=== PATIENT | male | born 1955 | race Two or more races ===

== ENCOUNTER 2020-04-01 07:08 | Inpatient (IN) | payer OTHER, SELFPAY ==
[~2020-04-01] VITALS: Ht 182.9 cm; Wt 83.9 kg
[2020-04-01 07:14] VITALS: Ht 182.9 cm; Wt 83.9 kg
--- NOTE | 2020-04-01 07:15 | NUR ---
PT BIB [facility] FROM HOME FOR WORSENING SOB X2 DAYS S/P DIAGNOSED COVID + AND PNEUMONIA PER MEDIC. PER MEDIC UPON ARRIVAL TO PT RESIDENCE PT SPO2 WAS 66% ION ROOM AIR. PT ON NON REBREATHER AT 15L, SPO2 AT 88% AT THIS TIME. PT C/O DRY COUGH AND WORSENING SOB. PT IS AAOX4, RESP SHALLOW AND RAPID, COURSE CRACKLES NOTED TO BILATERAL BASES, PT SPEAKING ON 5-6 WORD SENTENCES, SKIN INTACT PINK WARM AND DRY. PT GOWNED, PLACED IN FULL CM, NSR NOTED, DR LOERA, RT, SAMIA RN, EMT [facility] AND MYSELF AT THE BEDSIDE.
[2020-04-01 07:20] VITALS: BP 153/89
--- NOTE | 2020-04-01 07:20 | NUR ---
EKG IN PROGRESS BY SAMIA MADDOX RN A TTHE BEDSIDE DRAWING FOR LABS, RT AT THE BEDSIDE
--- NOTE | 2020-04-01 07:45 | NUR ---
PT INSTRUCTED OF URINE SAMPLE, URINAL AT THE BEDSIDE FOR PT USE. AWARE.
--- NOTE | 2020-04-01 07:48 | NUR ---
PT PLACED ON HI FLOW 40L 100% PER MD ORDER FOLLWING ABG RESULTS. PT AWAKE, ALERT AND VERBAL. SATURATION 91%. WILL MONITOR PT.
[2020-04-01] MEDS ORDERED: ZESTRIL20 MG PO ×2 (08:02→10:51)
[2020-04-01] MEDS ORDERED: LIPI10 GT (08:02)
[2020-04-01] MEDS ORDERED: CARVEDILOL ER40 MG PO (08:02)
[2020-04-01 08:18] LABS: CALCIUM 8.8 mg/dL (8.5-10.1); CREATININE SERUM 1.4 mg/dL (0.7-1.3); POTASSIUM SERUM 3.8 mmol/L (3.5-5.1)
[2020-04-01 08:22] LABS: BILIRUBIN TOTAL 0.6 mg/dL (0.20-1.00); TOTAL PROTEIN, SERUM 7.7 g/dL (6.4-8.2)
[2020-04-01 08:25] LABS: ALBUMIN 2.8 g/dL (3.4-5.0)
[2020-04-01 08:27] LABS: BASOPHIL % 0.2 % (0-2); PLATELET COUNT 266 x10^3mcL (130-400); RED CELL DISTRIBUTION WIDTH 13.5 % (11.5-14.5)
--- NOTE | 2020-04-01 08:45 | NUR ---
PT RESP APPEAR IMPROVED, RESP ARE EVEN UNLABORED AT THIS TIME. PT SPEAKING IN FULL SENTENCES, NO DISTRESS NOTED. PT DENIES ANY PAIN. PT IN FULL CM, NSR NOTED. WILL CONT TO MONITOR.
[2020-04-01 10:01] LABS: UA SPECIFIC GRAVITY 1.015 (1.005-1.035); microscopic required? YES; urine erythrocyte 1+ (NEGATIVE)
--- NOTE | 2020-04-01 10:17 | NUR ---
PT IN POSITION OF COMFORT LAYING LAYING IN HIGH FOWLERS. PT ASKED FOR SOME WATER FOR "DRY THROAT." OK PER DR LOERA TO GIVE CUP OF WATER. PT GIVEN WATER. PT IS AAOX4, NO DISTRESS NOTED, RESP E/U AT THIS TIME. WILL CONT TO MONITOR.
[2020-04-01] MEDS ORDERED: PLA75 PO (10:51)
[2020-04-01] MEDS ORDERED: CARVEDILOL12.5 M1 PO (10:52)
[2020-04-01] MEDS ORDERED: ATORVASTATIN CA40 M1 PO (10:52)
--- NOTE | 2020-04-01 10:58 | NUR ---
REPORT GIVEN TO REGI RICO ON TELE UNTI WHO WILL ASSUME FURTHER CARE OF THIS PT.
--- NOTE | 2020-04-01 10:58 | NUR ---
NOTIFIED BY SAMIA RICO THAT PT WILL NEED TO BE ASSIGNED TO A DIFFERENT ROOM THAT IS NEGATIVE PRESSURE. AWAITING NEW ROOM ASSIGNMENT AND RN
--- NOTE | 2020-04-01 11:20 | NUR ---
CALLED REX RICO ON TELE FOR ASSIGNED PT, SHE RECEIVED REPORT FROM REGI RICO. PT OK TO BRING UP TO UNIT.
[2020-04-01 11:55] VITALS: BP 157/92
--- NOTE | 2020-04-01 11:55 | NUR ---
RECEIVED PT FROM ED VIA GUERNEY ACCOMPANIED BY RAY AND RN. PT WEARING A MASK UPON ARRIVAL TO UNIT. AAOX4, SPEECH CLEAR. DENIES HAIRSTON/DIZZINESS. APPROPRIATE CONVERSATION NOTED. RES E/U, DENIES SOB. O2 SAT 96% ON 40 L HIGH FLOW, FIO2 100%. LUNG SOUNDS DIMINISHED BILATERALLY AND CRACKLES AT BASES BILATERALLY. TELE MONITOR 2 SHOWING SR, DENIES CP/PRESSURE. PERIPHERAL PULSES PALPABLE W NO EDEMA NOTED. ABDOMEN ROUND AND SOFT W ACTIVE BOWEL SOUNDS. DENIES N/V/D/C. VOID IN URINAL WITHOUT DIFFICULTY. NO COMPLAINT. AMBULATORY AT BASELINE. SKIN DRY, WARM, AND INTACT. SON REPORTS PT HAVING A FEVER A FEW DAYS AGO. CURRENTLY, AFEBRILE. COVID SWAB AND MRSA SWAB DONE AND TAKEN TO LAB. SAFETY PRECAUTIONS IN PLACE. WILL CONTINUE TO MONITOR
[2020-04-01 13:17] VITALS: BP 157/92
[2020-04-01 16:59] VITALS: BP 140/74
--- NOTE | 2020-04-01 18:59 | NUR ---
PT RESTING IN BED USING IPAD WITHOUT APPARENT DISTRESS. NO SIGNIFICANT CHANGES NOTED. O2 SAT 95% ON HIGH FLOW 40 L, FIO2 100%. SOB ON ACTIVITY. OTHERWISE PT STABLE. WILL ENDORSE CARE TO NEXT SHIFT.
--- NOTE | 2020-04-01 20:00 | NUR ---
RECEIVED PT FROM AM NURSE, PT AWAKE AND SITTING IN BED AT THIS TIME. AA/O X 4, ABLE TO MAKE NEEDS KNOWN, CLEAR SPEECH. TELE MONITOR #10, NSR, DENIES CHEST PAIN/CHEST PRESSURE. PULSES PALPABLE, NO EDEMA. LUNG SOUNDS DIMINISHED JAYLENE, CRACKLES TO BLL, RESPIRATIONS E/U ON 40 LPM OF HIGH FLOW OXYGEN, FI02 100%, SP02 AT 92%. DENIES SOB, NO RESPIRATORY DISTRESS AT THIS TIME. ACTIVE BS X 4 QUADS, ABD SOFT AND DISTENDED, NON TENDER. DENIES N/V/D. PT VOIDS USING URINAL. GENERALIZED WEAKNESS, SKIN INTACT, DENIES PAIN. IV TO LAC AND RAC, SL. BOTH IV SITES NO ERYTHEMA, NO INFILTRATION, BOTH FLUSHING WELL. CALL BUTTON WITHIN REACH, WILL CONTINUE TO MONITOR.
--- NOTE | 2020-04-01 20:19 | NUR ---
SPOKE WITH RESIDENT DR. JORDAN AND ASKED TO REVIEW HOME MEDICATIONS AND TO DECIDE TO CONTINUE, ASKED IF SHE WANTED AM LABS, AND ASKED IF SHE RECOMMENDS PO FLUID RESTRICTION FOR PT. DR. JORDAN STATED SHE WILL EVALUATE PT AND F/U WITH ORDERS IF NEEDED. WILL CONTINUE TO MONITOR.
[2020-04-01 22:01] VITALS: BP 143/95
--- NOTE | 2020-04-01 23:00 | NUR ---
DR. CORTES ORDERED 2 UNITS OF CONVALESCENT PLASMA. PT MADE AWARE AND GIVEN CONSENT PAPERWORK TO SIGN. PT DID NOT SIGN CONSENT AND STATED HE WANTS TO CALL HIS SON IN THE MORNING TO DISCUSS PRIOR TO SIGNING.
--- NOTE | 2020-04-02 00:05 | NUR ---
PT IN BED RESTING WITH EYES CLOSED, BUT EASILY AROUSABLE. RESPIRATIONS E/U ON OXYGEN 40 LPM HIGH FLOW, FIO2 100%, SPO2 AT 87-94%. NO RESPIRATORY DISTRESS AT THIS TIME. DENIES PAIN AT THIS TIME. PT CONTINUES ON DROPLET/ CONTACT ISOLATION FOR POSITIVE COVID-19 STATUS. PT AWARE. NO ACUTE DISTRESS AT THIS TIME. CALL BUTTON WITHIN REACH, WILL CONTINUE TO MONITOR.
[2020-04-02 00:30] VITALS: BP 156/86
--- NOTE | 2020-04-02 00:40 | NUR ---
PT COMPLAINED OF COUGH, COUGH NOTED. PRN MUCINEX GIVEN. RT CALLED AND RT STATED THAT THEY COULD ADD A NRB AND THAT PT WAS ALREADY MAXED OUT ON OXYGEN, FIO2 AT 100%. DR. VEGA UPDATED AND MADE AWARE, COUGH SYRUP SUGGESTED. DR. VEGA STATED SHE WOULD ASSESS AND ORDER IF NEEDED. RESPIRATIONS E/U, DENIES SOB. WILL CONTINUE TO MONITOR.
[2020-04-02 06:39] VITALS: BP 151/87
--- NOTE | 2020-04-02 06:50 | NUR ---
PT SLEPT IN INTERVALS THROUGHOUT THE NIGHT, BUT EASILY AROUSABLE. RESPIRATIONS E/U, SPO2 BETWEEN 95-99% THROUGHOUT THE NIGHT ON HIGH FLOW 40 LPM, FIO2 100%. NO RESPIRATORY DISTRESS. PT DENIES SOB. PT DENIES PAIN. NO ACUTE CHANGES OVERNIGHT. DROPLET/ CONTACT ISOLATION PRECAUTIONS CONTINUED FOR POSITIVE COVID-19 STATUS, PT AWARE. CALL BUTTON WITHIN REACH, CARE ENDORSED TO AM NURSE.
--- NOTE | 2020-04-02 07:00 | NUR ---
RECEIVED PT FROM NIGHT RN. PT AAOX4, SPEECH CLEAR. DENIES HAIRSTON/DIZZINESS. APPROPRIATE CONVERSATION NOTED. RES EVEN AND LABORED. O2 SAT 90% ON 40 L HIGH FLOW, FIO2 100%. DRY COUGH NOTED. TELE MONITOR 10 SHOWING SR, DENIES CP/PRESSURE. ABDOMEN ROUND AND SOFT. VOIDS IN URINAL WITHOUT DIFFICULTY. NO GI/ COMPLAINT. PERIPHERAL PULSES PALPABLE W NO EDEMA NOTED. IV SITE TO RAC AND LAC, SL W NO S/S OF INFILTRATION NOTED. SAFETY PRECAUTIONS IN PLACE, WILL CONTINUE TO MONITOR.
[2020-04-02 07:17] LABS: CALCIUM 8.9 mg/dL (8.5-10.1); CARBON DIOXIDE 28.6 mmol/L (21-32); CHLORIDE SERUM 103 mmol/L (98-107); CREATININE SERUM 1.2 mg/dL (0.7-1.3); GFR1 > 60 mL/min; GLUCOSE SERUM 129 mg/dL (74-106); MAGNESIUM 2.2 mg/dL (1.8-2.4); PHOSPHOROUS 2.8 mg/dL (2.5-4.9); POTASSIUM SERUM 3.7 mmol/L (3.5-5.1); SODIUM SERUM 139 mmol/L (136-145)
[2020-04-02 07:22] LABS: BASOPHIL % 0.1 % (0-2); PLATELET COUNT 312 x10^3mcL (130-400); RED CELL DISTRIBUTION WIDTH 13.6 % (11.5-14.5)
--- NOTE | 2020-04-02 08:00 | NUR ---
PT FOUND KNEELING DOWN BY THE FOOT OF THE BED WITH LABORED RESPIRATIONS. PT REPORTS TRYING TO GO TO THE BATHROOM BUT NOT ABLE TO TOLERATE ACTIVITY. ASSISTED PT ON BSC. REMINDED PT TO KEEP OXYGEN ON EVEN WHEN USING THE BSC.
--- NOTE | 2020-04-02 08:04 | NUR ---
CRITICAL RESULT RECEIVED. WBC COUNT 12.9. DR. RICO PAGED TO NOTIFY.
[2020-04-02 09:00] VITALS: BP 140/78
[2020-04-02 10:00] LABS: BILIRUBIN DIRECT 0.17 mg/dL (0.0-0.2); BILIRUBIN TOTAL 0.5 mg/dL (0.20-1.00); TOTAL PROTEIN, SERUM 7.4 g/dL (6.4-8.2)
--- NOTE | 2020-04-02 10:00 | NUR ---
ENCOURAGED PT TO PRONE TOLERATED. PT STATES "HOW CAN I LAY ON BY STOMACH WITH ALL THIS STUFF ON ME?". ENCOURAGED PT TO USE PILLOWS FOR COMFORT IN ORDER TO PRONE.
[2020-04-02 10:05] LABS: ALBUMIN 2.6 g/dL (3.4-5.0)
--- NOTE | 2020-04-02 13:00 | NUR ---
ASSISTED PT TO CHAIR FOR LUNCH. O2 SAT DESAT TO 85% DURING TRANSFER. 15 LPM NRB WAS PLACED WITH 40L HIGH FLOW UNTIL O2 SAT INCREASED TO 93%. PT EATING LUNCH. ON 40 L HIGH FLOW, FIO2 100%.
--- NOTE | 2020-04-02 14:14 | NUR ---
AT 1300 - ATTEMPTED TO OBTAIN CONSENT FOR CONVALESCENT PLASMA FROM. PT REQUESTED TO OBTAIN CONSENT FROM SON. AT 1414 - CALLED SON REGARDING CONVALESCENT PLASMA CONSENT. SON STATED "I WILL CALL MY FATHER FIRST AND CALL YOU BACK"
[2020-04-02 15:00] VITALS: BP 130/69
--- NOTE | 2020-04-02 16:42 | NUR ---
AT 1445 - SON, AUG, CALLED BACK AND AGREED WITH TREATMENT. OBTAINED TELEPHONE CONSENT FOR CONVALESCENT PLASMA. VERIFIED WITH RESOURCE RN, RACIEL.
--- NOTE | 2020-04-02 17:46 | NUR ---
DR PEREZ MADE AWARE REGARDING ORDERS FOR CONVALESCENT PLASMA TRANSFUSION AND TYPE AND SCREEN. STATES HE WILL PLACE ORDERS
--- NOTE | 2020-04-02 18:00 | NUR ---
ASSISTED PT TO SIT ON CHAIR FOR DINNER. ENCOURAGED PT TO EAT. PT HAS POOR APPETITE NOTED. O2 SAT 94% ON 15 LPM NRB AND 40 L HIGH FLOW, FIO2 100%. DRY COUGH NOTED.
[2020-04-02 18:35] VITALS: BP 155/76
--- NOTE | 2020-04-02 20:00 | NUR ---
RECEIVED PT FROM AM NURSE, PT SITTING IN BED AWAKE, AA/O X 4, ABLE TO MAKE NEEDS KNOWN, DENIES HEADACHE/ DIZZINESS. TELE MONITOR #[address], NSR, DENIES CHEST PAIN/ CHEST PRESSURE. PULSES PALPABLE, NO EDEMA. LUNG SOUNDS DIMINISHED BILATERALLY. RESPIRATIONS E/U ON HIGH FLOW 40 LPM, FIO2 100%, NRB 15 LPM. DENIES SOB. ACTIVE BS X 4 QUADS, ABD SOFT AND DISTENDED. DENIES N/V/D. VOIDS USING URINAL. SKIN INTACT. DENIES PAIN. CONTINUES ON DROPLET/ CONTACT ISOLATION FOR POSITIVE COVID-19 STATUS. PT AWARE. ALL CONCERNS MET AT THIS TIME. CALL BUTTON WITHIN REACH, WILL CONTINUE TO MONITOR.
--- NOTE | 2020-04-02 21:50 | NUR ---
PT HAVING COUGH. PRN ROBITUSSIN GIVEN WITH OTHER NIGHTTIME MEDICATIONS. WILL CONTINUE TO MONITOR.
[2020-04-02 22:01] VITALS: BP 149/79
--- NOTE | 2020-04-02 23:45 | NUR ---
FIRST UNIT OF CONVALESCENT PLASMA PICKED UP FROM LAB. PRE VITAL SIGNS FOLLOWS: BP 149/79, HR 71, TEMP 98.7, RR 20, SPO2 92% ON 15 LPM VIA NRB AND 40 LPM HIGH FLOW FIO2 100%. CONVALESCENT TRANSFUSION STARTED AT 2345 RATE 30 ML/ HR. WILL MONITOR FOR REACTIONS, STAYING WITH PATIENT FOR 15 MINUTES.
--- NOTE | 2020-04-03 00:05 | NUR ---
15 MINUTES VITAL SIGNS FOLLOWS: TEMP 97.7, BP 149/75 (99), HR 74 BPM, RR 20, SPO2 90% ON HIGH FLOW WITH NRB 40 LPM FI02 100%. NO ADVERSE SIDE EFFECTS FROM CONVALESCENT PLASMA. RATE INCREASED TO 200 ML/HR. WILL CONTINUE TO MONITOR.
--- NOTE | 2020-04-03 01:10 | NUR ---
FIRST UNIT OF CONVALESCENT PLASMA FINISHED AT 0105. NO ADVERSE SIDE EFFECTS. POST VITAL SIGNS FOLLOWS: BP 146/75, TEMP 97.2, HR 74, RR 20, SPO2 91% ON 15 LPM VIA NRB AND 40 LPM HIGH FLOW FIO2 100%. NO RESPIRATORY DISTRESS AT THIS TIME. WILL CONTINUE TO MONITOR.
--- NOTE | 2020-04-03 03:00 | NUR ---
SECOND UNIT OF CONVALESCENT PLASMA STARTED AT 0235. PRE VITAL SIGNS FOLLOWS: BP 149/75, HR 72, RR 20, TEMP 97.2, SPO2 91%. INFUSION STARTED AT 30 ML/HR. AFTER 15 MINUTES, NO ASE/ NO REACTION. 15 MINUTE VITAL SIGNS FOLLOWS: BP 128/71, HR 68, RR 20, TEMP 97.8, SPO2 92%. RATE INCREASED TO 200 ML/ HR. WILL CONTINUE TO MONITOR.
--- NOTE | 2020-04-03 04:25 | NUR ---
CONVALESCENT PLASMA, SECOND UNIT, FINISHED AT 0400. NO ASE/ NO ADVERSE REACTIONS. PT TOLERATED TRANSFUSIONS WELL. DENIES PAIN. POST VITAL SIGNS FOLLOWS: BP 141/79, HR 79, TEMP 97.7, RR 19, SPO2 91%. CONTINUES ON HIGH FLOW 40 LPM FIO2 100% AND 15 LPM VIA NRB. NO ACUTE DISTRESS NOTED. WILL CONTINUE TO MONITOR.
[2020-04-03 05:38] VITALS: BP 141/79
--- NOTE | 2020-04-03 07:00 | NUR ---
RECEIVED PT FROM NIGHT RN. PT RESTING IN BED WATCHING IPAD. SEMI VARELA'S POSITION. AAOX4, APPROPRIATE CONVERSATION NOTED. RES EVEN AND SLIGHTLY LABORED. SHALLOW BREATHING NOTED. ON 40 L HIGH FLOW, FI02 100% AND 15 L NRB. TELE MONITOR 10 SHOWING SR. NO C/O OF PAIN/DISCOMFORT. ALTHOUGH C/O FATIGUE. BSC IN PLACE. IV SITE TO [facility] SL, CDI. SAFETY PRECUATIONS IN PLACE. COVID POS. WILL CONTINUE TO MONITOR.
--- NOTE | 2020-04-03 07:15 | NUR ---
PT SLEPT IN INTERVALS THROUGHOUT THE NIGHT, RESPIRATIONS E/U ON 40 LPM HIGH FLOW FIO2 100%, 15 LPM O2 VIA NRB. SPO2 DURING NAVIGATION TEACHER RANGING BETWEEN 91- 94%. DENIES PAIN AT THIS TIME. CALL Tania RUTHERFORD WITHIN REACH, CARE ENDORSED TO AM NURSE.
[2020-04-03 07:39] LABS: BASOPHIL % 0.3 % (0-2); PLATELET COUNT 345 x10^3mcL (130-400); RED CELL DISTRIBUTION WIDTH 13.9 % (11.5-14.5)
[2020-04-03 08:08] LABS: ALBUMIN 2.7 g/dL (3.4-5.0); ALKALINE PHOSPHATASE 92 U/L (46-116); ALT/SGPT 121 U/L (16-63); AST/SGOT 136 U/L (15-37); BILIRUBIN TOTAL 0.59 mg/dL (0.20-1.00); CALCIUM 8.6 mg/dL (8.5-10.1); CARBON DIOXIDE 29.6 mmol/L (21-32); CHLORIDE SERUM 103 mmol/L (98-107); CREATININE SERUM 1.2 mg/dL (0.7-1.3); GFR1 > 60 mL/min; GLUCOSE SERUM 110 mg/dL (74-106); MAGNESIUM 2.1 mg/dL (1.8-2.4); PHOSPHOROUS 3.3 mg/dL (2.5-4.9); POTASSIUM SERUM 3.7 mmol/L (3.5-5.1); SODIUM SERUM 140 mmol/L (136-145); TOTAL PROTEIN, SERUM 7.3 g/dL (6.4-8.2)
[2020-04-03 08:11] VITALS: BP 145/86
[2020-04-03 08:51] LABS: C REACTIVE PROTEIN 10.4 mg/dL (<=0.9)
[2020-04-03 09:04] LABS: BILIRUBIN DIRECT 0.17 mg/dL (0.0-0.2); BILIRUBIN TOTAL 0.6 mg/dL (0.20-1.00); TOTAL PROTEIN, SERUM 7.4 g/dL (6.4-8.2)
[2020-04-03 09:05] LABS: ALBUMIN 2.7 g/dL (3.4-5.0)
--- NOTE | 2020-04-03 12:19 | NUR ---
RT AT BEDSIDE WITH RT STUDENT FOR MDI TREATMENT. ENCOURAGED PT TO PRONE. PT REFUSED TO PRONE. PT STATES "I CANT WITH ALL THIS STUFF ON".
[2020-04-03 12:46] VITALS: BP 150/96
--- NOTE | 2020-04-03 13:28 | NUR ---
ASSISTED PT TO PRONE WITH HELP OF PRESS CLEANER. PRESS CLEANER ENCOURAGED PT, IN [place], TO PRONE FOR 12 HOURS OR TOLERATED. PT IS MORE COMPLIANT AND IS CURRENTLY IN PRONED POSITION. O2 SAT 90% ON HIGH FLOW 40 L, FI02 100% AND NRB 15 L
--- NOTE | 2020-04-03 13:30 | NUR ---
CALLED SONJONI, TO PROVIDE UPDATE ON PATIENT'S STATUS. PROVIDED UPDATE THAT PT'S OXYGENATION HAS NOT IMPROVED AND PT IS STILL ON 40 L HIGH FLOW AND 15 L NRB W O2 SAT OF 90-92%. ALSO, TOLD SON TO ENCOURAGE PT TO "LAY ON HIS STOMACH" TO IMPROVE OXYGENATION AND PREVENT INTUBATION. SON SEEMED APPRECIATIVE OF UPDATE.
--- NOTE | 2020-04-03 13:40 | NUR ---
RT AT BEDSIDE TO PLACE PT ON BIPAP ORDERED. PT STILL IN PRONED POSITION.
--- NOTE | 2020-04-03 16:42 | NUR ---
ECHOCARDIOGRAM PENDING-COVID POSITIVE
--- NOTE | 2020-04-03 17:21 | NUR ---
DR GARZON AT BEDSIDE TO EXAMINE AND UPDATE PT ON POC.
[2020-04-03 18:16] VITALS: BP 113/57
--- NOTE | 2020-04-03 18:39 | NUR ---
PT RESTING IN BED IN PRONED POSITION WITHOUT APPARENT DISTRESS. NO SIGNIFICANT CHANGES NOTED. O2 SAT 100% ON BIPAP, SETTING FIO2 100% IPAP 16, IPAP 6. WILL ENDORSE CARE TO NEXT SHIFT
--- NOTE | 2020-04-03 19:30 | NUR ---
RECEIVED PT FROM AM NURSE. PT IS LAYING ON SIDE, NO APPARENT DISTRESS AT THIS TIME. AA/O X 4 ABLE TO MAKE NEEDS KNOWN, CLEAR SPEECH, NO FACIAL DROOP. DENIES HEADACHE/ DIZZINESS. TELE MONITOR #10, NSR, HR 72 BPM. DENIES CHEST PAIN, CHEST PRESSURE. PULSES PALPABLE NO EDEMA. LUNG SOUNDS DIMINISHED JAYLENE, RESPIRATIONS EVEN AND SLIGHTLY LABORED AT TIMES. PT O2 SAT 92-94% AFTER ASSISTING PT TO PRONE POSITION O2 SAT INCREASED TO 96%. ABD SOFT AND SLIGHLY DISTENDED, DENIES N/V/D. PT VOIDS USING URINAL. GENERALIZED WEAKNESS BUT ABLE TO AMBULATE TO CHAIR AND BSC. SKIN INTACT, DENIES PAIN OR ANXIETY AT THIS TIME. IV TO LAC INTACT, DRSG CDI. FLUSHING WELL , NO ERYTHEMA, NO INFILTRATION, SL. DROPLET/ CONTACT ISOLATION PRECAUTIONS IN PLACE FOR POSITIVE COVID 19, PT AND FAMILY AWARE. ALL CONCERNS MET AT THIS TIME. CALL BUTTON WITHIN REACH, WILL CONTINUE TO MONITOR.
--- NOTE | 2020-04-03 20:00 | NUR ---
RECEIVED PHONE CALL FROM PT'S SON JONI, PT SON REQUESTING UPDATE ON HOW HIS DAD IS DOING. UPDATE GIVEN AND PT'S SON SATISFIED HOWEVER PT REQUESTED A CALL BACK AFTER I GO SEE PT AGAIN FOR NIGHT MEDS. REASSURED PT SON I WILL CALL BACK.
[2020-04-03 21:30] VITALS: BP 148/83
--- NOTE | 2020-04-03 22:00 | NUR ---
REQUESTED PROTECTIVE GEL FOR PT'S SKIN AROUND BIPAP. RT PROVIDED. RT ASSESSED PT AND DECREASED BIPAP SETTING FROM 100% DOWN TO 80%. IPAP 12. EPAP 6. PT TOLERATING WELL.
--- NOTE | 2020-04-03 22:36 | NUR ---
I CALLED PT'S SON BACK AND GAVE UPDATE. PTS SON ASKED SEVERAL QUESTIONS, ALL CONCERNS MET TO BEST OF ABILITY. PT'S SON GRATEFUL FOR UPDATE. WILL KEEP FAMILY INFORMED OF ANY CHANGES PER REQUEST.
--- NOTE | 2020-04-03 22:42 | NUR ---
SPO2 AT 98%, PT REMAINS IN PRONE POSITION AT THIS TIME. WILL CONTINUE TO MONITOR.
--- NOTE | 2020-04-04 00:08 | NUR ---
PT LAYING IN BED ON HIS RIGHT SIDE WITH PILLOWS. BIPAP IS ON, RESPIRATIONS E/U WITH O2 SAT 98-99%. SETTINGS REMAIN FIO2 80%, IPAP 12, EPAP 6. DENIES PAIN/ DENIES ANXIETY AT THIS TIME. NO ACUTE DISTRESS NOTED. SIDE RAILS UP X 2. CALL BUTTON WITHIN REACH, WILL CONTINUE TO MONITOR.
[2020-04-04 05:30] VITALS: BP 131/76
--- NOTE | 2020-04-04 06:47 | NUR ---
PT SLEPT IN INTERVALS THROUGHOUT THE NIGHT, BUT EASILY AROUSABLE. RESPIRATIONS EVEN AND SLIGHTLY LABORED AT TIMES. PT DENIES ANXIETY THIS SHIFT, NO ATIVAN GIVEN. PT CONTINUES ON BIPAP FIO2 80%, IPAP 12, EPAP 6 PER RT. O2 SAT IS AT 96%. O2 SAT RANGED FROM 92-98% THROUGHOUT THE NIGHT, PT PRONED/ LAYED ON RIGHT SIDE DURING THE NIGHT, PLEASE ENCOURAGE PT TO CONTINUE PRONE UP TO 12 HOURS PER DAY PER ORDER. DENIES PAIN AT THIS TIME. TELE MONITOR #[address], BATTERY CHANGED. DROPLET ISOLATION PRECAUTIONS IN PLACE FOR POSITIVE COVID 19 STATUS. LOOSE BM THIS MORNING IN BSC. ALL CONCERNS ADDRESSED, PT CONTENT. CALL BUTTON WITHIN REACH, WILL ENDORSE CARE TO AM NURSE.
--- NOTE | 2020-04-04 07:20 | NUR ---
RECEIVED A REPORT FROM AM SHIFT, SEEN PATIENT AWAKE, ALERT, ORIENTED X3, ON BIPAP FIO2 80% PER RT. O2SAT NOTED 91%-95% ON CONT PULSE OX, TELE# 10 NSR HR=75. ON REGULAR DIET. LAST BM THIS AM. USES URINAL AND BSC. S/L TO LAC INTACT AND PATENT. ON CONTACT/DROPLET ISOLATION FOR POSITIVE COVID-19.
--- NOTE | 2020-04-04 07:40 | NUR ---
PER SON'S REQUEST, I CALLED AND UPDATED PT'S SON ON HOW PT DID OVERNIGHT. PT'S SON APPRECIATIVE OF UPDATE. INFORMED SON THAT ONCOMING NURSE WILL BE TAKING OVER CARE AND RT, NURSE, OR DOCTOR'S WILL CALL WITH UPDATES IF NEEDED. REASSURED PT'S SON MUCH POSSIBLE. PT O2 SAT 96% ON BIPAP AT THIS TIME, FI02 80%. CARE ENDORSED TO AM NURSE.
[2020-04-04 08:19] LABS: ALKALINE PHOSPHATASE 87 U/L (46-116); ALT/SGPT 101 U/L (16-63); AST/SGOT 108 U/L (15-37); BILIRUBIN TOTAL 0.8 mg/dL (0.20-1.00); CALCIUM 8.7 mg/dL (8.5-10.1); CARBON DIOXIDE 29.5 mmol/L (21-32); CHLORIDE SERUM 102 mmol/L (98-107); CREATININE SERUM 1.1 mg/dL (0.7-1.3); GFR1 > 60 mL/min; GLUCOSE SERUM 93 mg/dL (74-106); POTASSIUM SERUM 3.9 mmol/L (3.5-5.1); SODIUM SERUM 137 mmol/L (136-145); TOTAL PROTEIN, SERUM 7.2 g/dL (6.4-8.2)
[2020-04-04 08:23] LABS: ALBUMIN 2.5 g/dL (3.4-5.0)
[2020-04-04 08:45] LABS: BASOPHIL % 0.1 % (0-2); PLATELET COUNT 341 x10^3mcL (130-400); RED CELL DISTRIBUTION WIDTH 14.2 % (11.5-14.5)
[2020-04-04 08:57] VITALS: BP 149/90
--- NOTE | 2020-04-04 09:00 | NUR ---
S/L TO LAC LEAKING, NO S/S OF INFECTION, DRSG APPLIED. NEW IV CATHETER#22 INSERTED TO RT WRIST WITH GOOD BLD RETURNED AND FLUSHED WELL. AM SCHEDULED MEDS GIVEN. PATIENT APPEARS ANXIOUS, ATIVAN 0.5MG IVP SLOWLY GIVEN. PLAN OF CARE DISCUSSED. CALL LIGHT PLACED WITHIN EASY REACH. SIDERAILS UP X3. WILL CONTINUE TO MONITOR.
--- NOTE | 2020-04-04 10:28 | NUR ---
PATIENT'S SON CALLED, UPDATED VIA PHONE.
--- NOTE | 2020-04-04 11:10 | NUR ---
DOCTOR RAJPUT AT BEDSIDE FOR AM ROUND. PATIENT MADE AWARE OF CURRENT CONDITION AND PLAN OF CARE. PATIENT'S SON JONI PHONE NUMBER PROVIDED TO DOCTOR RAJPUT TO CALL FOR AN UPDATE.
[2020-04-04 12:30] VITALS: BP 109/60
--- NOTE | 2020-04-04 13:23 | NUR ---
STATED HAD POOR APPETITE, LUNCH TRAY PROVIDED, ENCOURAGED TO EAT. PATIENT SITTING UP IN BED FINISHED SOME SOUP AND APPLE JUICE, DENIES NAUSEA OR PAIN. REMDESEVIR INFUSING TO RT WRIST IV SITE. CALL LIGHT PLACED WITHIN EASY REACH. SIDERAILS UP X2.
--- NOTE | 2020-04-04 14:37 | NUR ---
SEEN RESTING IN BED USING HIS IPAD, NO ANY DISTRESS NOTED, O2SAT 95% ON BIPAP FIO2 80%.
[2020-04-04 18:36] VITALS: BP 125/71
--- NOTE | 2020-04-04 19:37 | NUR ---
NO ANY DISTRESS THROUGHOUT SHIFT. VSS. REMAINS ON BIPAP FIO2 80% WITH O2SAT RANGE BETWEEN 91%-96%. DENIES NAUSEA OR PAIN. BRP. VOIDS FREELY.
[2020-04-04 20:00] VITALS: BP 135/73
--- NOTE | 2020-04-04 20:00 | NUR ---
RECEIVED PATIENT REPORT FROM TIFFANIE RICO. PATIENT IS AAOX3, DENIES HAIRSTON/DIZZINESS. BREATHING EVEN AND UNLABORED ON BIPAP 80% FIO2 WITH 97% O2SAT. PATIENT AMBULATORY WITH BRP. PATIENT ON TELE #10 SR ON MONITOR, DENIES CHEST PAIN/PRESSURE. PALPABLE PULSES. NO DISTRESS NOTED. CALL BUTTON WITHIN REACH. SAFETY PRECAUTIONS IN PLACE. WILL MONITOR.
--- NOTE | 2020-04-05 01:13 | NUR ---
PATIENT RESTING, EASILY AROUSABLE. PATIENT CONTINUE TO HAVE BIPAP ON AND IN PLACE, O2SAT 95%. ALL SAFETY PRECAUTIONS IN PLACE. WILL MONITOR.
--- NOTE | 2020-04-05 05:40 | NUR ---
PATIENT RESTING AT THIS TIME, EASILY AROUSABLE. NO ACUTE DISTRESS NOTED. PATIENT CONTINUE TO BE ON BIPAP THROUGHOUT THE NIGHT WITH 80% FIO2, O2SAT 95%. PATIENT MEDICATED PER EA. ALL NEEDS MET. CALL BUTTON WITHIN REACH. SAFETY PRECAUTIONS IN PLACE. WILL MONITOR.
[2020-04-05 06:02] VITALS: BP 127/70
[2020-04-05 07:09] LABS: PLATELET COUNT 350 x10^3mcL (130-400); RED CELL DISTRIBUTION WIDTH 14.2 % (11.5-14.5)
[2020-04-05 07:19] LABS: BASOPHIL % 0 % (0-2)
--- NOTE | 2020-04-05 07:20 | NUR ---
SEEN AOX4, NOT IN DISTRESS, TELE 10 NSR, PALPABLE PULSES, NO EDEMA, DIMINISHED BLF, NO SOB, BIPAP IN PLACE WITH FIO2 80%, IPAP 12, EPAP6, +BS, VOIDS WITH NO DYSURIA, GENERALIZED WEAKNESS, LIMITED ROM, SKIN DRY AND INTACT, NO PAIN AT THIS TIME, IV INTACT AND PATENT, RW, NO REDNESS OR SWELLING,CALL LIGHT WITHIN REACH, BED AT LOWEST POSITION, SIDE RAILS UP.
--- NOTE | 2020-04-05 07:24 | NUR ---
PATIENT IN NO SIGNS OF DISTRESS. ENDORSED CARE TO OTIS RICO, ALL QUESTIONS ADDRESSED.
[2020-04-05 07:50] LABS: ALKALINE PHOSPHATASE 78 U/L (46-116); ALT/SGPT 92 U/L (16-63); AST/SGOT 87 U/L (15-37); BILIRUBIN TOTAL 0.8 mg/dL (0.20-1.00); CALCIUM 8.6 mg/dL (8.5-10.1); CARBON DIOXIDE 31.8 mmol/L (21-32); CHLORIDE SERUM 103 mmol/L (98-107); GFR1 > 60 mL/min; GLUCOSE SERUM 106 mg/dL (74-106); POTASSIUM SERUM 3.9 mmol/L (3.5-5.1); SODIUM SERUM 138 mmol/L (136-145); TOTAL PROTEIN, SERUM 6.8 g/dL (6.4-8.2)
[2020-04-05 07:53] LABS: ALBUMIN 2.3 g/dL (3.4-5.0)
[2020-04-05 08:51] VITALS: BP 117/64
--- NOTE | 2020-04-05 08:52 | NUR ---
MEDICATIONS GIVEN PER EMAR. COREG AND LISINOPRIL ON HOLD.
--- NOTE | 2020-04-05 09:41 | NUR ---
SPOKE WITH TYLER PATEL, PER TYLER, SHE WILL SWITCH OUT THE MASK SO PATIENT WON'T FEEL AIR LEAKING OUT TO DRY HIS EYES.
--- NOTE | 2020-04-05 09:44 | NUR ---
SPOKE WITH RT TYLER, PER TYLER, HER PLAN IS TO WEAN PATIENT TO HI FLOW LATER THIS AFTERNOON. PATIENT HAS NO SUBJECTIVE COMPLAINT, PER PATIENT HE FEELS BETTER, O2 SAT 95%.
--- NOTE | 2020-04-05 12:41 | NUR ---
SEEN AOX4, NOT IN DISTRESS. PATIENT SERVED WITH LUNCH TRAY. TRIED TO CHANGE O2 FROM BIPAP TO NC SO HE CAN EAT LUNCH, O2 SAT WENT DOWN FROM 97% TO 90%. PER PATIENT, HE WON'T EAT BECAUSE HE IS NOT HUNGRY FOR NOW. HE WILL JUST KEEP HIS MASK ON .CHANGED BACK TO BIPAP. O2 SAT 99%.
--- NOTE | 2020-04-05 14:02 | NUR ---
SPOKE RT TYLER, PER TYLER, PATIENT IS NOW ON HIGH FLOW 35LPM .O2 SAT 95%. NO SOB. NO SUBJECTIVE COMPLAINTS.
--- NOTE | 2020-04-05 14:36 | NUR ---
REMDESIVIR IV GIVEN PER EMAR.
[2020-04-05 18:03] VITALS: BP 130/78
--- NOTE | 2020-04-05 19:33 | NUR ---
RECEIVED REPORT FROM DAY SHIFT NURSE. CALLED IN, PT DENIES ANY PAIN OR SOB AT THIS TIME. SAO2 READING 91% ON HIGH FLOW 35L FIO2 80%. STATES HE DOES NOT NEED ANYTHING AT THIS TIME. WILL CONTINUE TO MONITOR
[2020-04-05 20:32] VITALS: BP 137/77
--- NOTE | 2020-04-05 21:30 | NUR ---
ROUTINE MEDICATIONS ADMINISTERED AND TOLERATED WELL. NO ACUTE DISTRESS NOTED. BREATHING IS EVEN AND UNLABORED ON HIGH FLOW 35L FIOS 80%. DENIES SOB. SAO2 READING 94%. NO RESP DISTRESS NOTED. DENIES PAIN AT THIS TIME. IV TO RW PATENT AND INTACT. NO ERYTHEMA NOTED. BED IN LOWEST POSITION. CALL LIGHT WITHIN REACH. WILL CONTINUE TO MONITOR.
--- NOTE | 2020-04-05 23:58 | NUR ---
PT RESTING COMFORTABLY. SAO2 READING 99% ON 35L HIGH FLOW FIO2 80%. NO RESP DISTRESS NOTED. WILL CONTINUE TO MONITOR.
--- NOTE | 2020-04-06 01:49 | NUR ---
NO ACUTE DISTRESS NOTED. SAO2 READING 94%. WILL CONTINUE TO MONITOR.
--- NOTE | 2020-04-06 02:55 | NUR ---
SAO2 READING 75%. CALLED IN, PT ACCIDENTALLY REMOVED OXYGEN. SAO2 NOW READING 98%. DENIES SOB. WILL CONTINUE TO MONITOR.
[2020-04-06 05:43] VITALS: BP 106/68
--- NOTE | 2020-04-06 06:30 | NUR ---
PT RESTED COMFORTABLY THROUGHOUT THE NIGHT WITH NO ACUTE EVENTS OCCURRING DURING THE SHIFT. COMFORT AND SAFETY MEASURES MAINTAINED. ALL NEEDS ASSESSED AND ATTENDED TO. WILL CONTINUE TO MONITOR AND ENDORSE CARE TO DAY SHIFT NURSE.
[2020-04-06 06:47] LABS: PLATELET COUNT 394 x10^3mcL (130-400); RED CELL DISTRIBUTION WIDTH 14.3 % (11.5-14.5)
[2020-04-06 06:53] LABS: BASOPHIL % 0 % (0-2)
[2020-04-06 06:56] LABS: ALKALINE PHOSPHATASE 78 U/L (46-116); ALT/SGPT 95 U/L (16-63); AST/SGOT 79 U/L (15-37); BILIRUBIN TOTAL 0.6 mg/dL (0.20-1.00); CARBON DIOXIDE 35.2 mmol/L (21-32); CHLORIDE SERUM 104 mmol/L (98-107); GFR1 > 60 mL/min; GLUCOSE SERUM 117 mg/dL (74-106); POTASSIUM SERUM 4.6 mmol/L (3.5-5.1); SODIUM SERUM 139 mmol/L (136-145); TOTAL PROTEIN, SERUM 6.8 g/dL (6.4-8.2)
[2020-04-06 06:58] LABS: ALBUMIN 2.4 g/dL (3.4-5.0)
--- NOTE | 2020-04-06 07:00 | NUR ---
RECEIVED PT RESTING IN BED WITH NO C/O PAIN OR DISTRESS. A/O X4 WITH NO HAIRSTON OR DIZZINESS. TELE #10 CONNECTED TO PT AND HE DENIES ANY CP OR PRESSURE. PT FOUND ON HF 35LPM AT 80%N NO SOB NOTED. PT ON 1200/DAY FLUID RESTRICTION. RIGHT WRIST IV CDI AND PATENT. PT COVID POSITIVE.SAFETY PRECAUTIONS IN PLACE, CALL LIGHT WITHIN REACH, WILL MONITOR.
[2020-04-06 08:11] LABS: C REACTIVE PROTEIN 8.4 mg/dL (<=0.9); MAGNESIUM 2.4 mg/dL (1.8-2.4)
--- NOTE | 2020-04-06 09:15 | NUR ---
TITRATED HFNC TO 30L FIO2:75%. PT TOLERATING WELL. NO ACUTE RESP DISTRESS NOTED. WILL CONT.TO MONITOR
[2020-04-06 09:40] VITALS: BP 111/65
--- NOTE | 2020-04-06 12:00 | NUR ---
PT STABLE WITH NO DISTRESS OR PAIN NOTED. WILL CONTINUE TO MONITOR.
[2020-04-06 13:17] VITALS: BP 122/63
--- NOTE | 2020-04-06 16:25 | NUR ---
TITRATED HFNC TO 30L FIO2:65%. PT TOLERATING WELL. NO RESP DISTRESS NOTED. WILL CONT.TO MONITOR
[2020-04-06 18:34] VITALS: BP 106/62
--- NOTE | 2020-04-06 18:40 | NUR ---
PT RESTING IN BED WITH NO C/O PAIN OR DISTRESS. VS WNL. A/O X4 WITH NO HAIRSTON OR DIZZINESS. TELE #10 CONNECTED TO PT AND HE DENIES ANY CP OR PRESSURE. PT ON HF 30 LPM AT 80%, NO SOB NOTED. PT ON 1200/DAY FLUID RESTRICTION. RIGHT WRIST IV CDI AND PATENT. PT COVID POSITIVE. SAFETY PRECAUTIONS IN PLACE, CALL LIGHT WITHIN REACH, WILL ENDORSE CARE OVER TO NIGHT NURSE.
--- NOTE | 2020-04-06 19:50 | NUR ---
RECEIVED PT IN BED, AWAKE, RESTING COMFORTABLY. PT IS A/O X 3, ABLE TO MAKE NEEDS KNOWN, ABLE TO FOLLOW COMMANDS, NO C/O H/A OR DIZZINESS. RESP IS EVEN AND UNLABORED, LUNGS SOUNDS DIMINISHED BILATERALLY, PT ON HI FLOW 30L, FIO2 65%, SPO2 97%, OCCASIONAL DRY COUGH NOTED. PT ON TELE # 10 SB, HR 55, NO C/ CHEST PAIN OR DIZZINESS. RADIAL AND PEDAL PULSES PRESENT, NO EDEMA NOTED. ABDOMEN SOFT AND FLAT, ACTIVE BS PRESENT X4, NO C/O N/V/D. SKIN IS WARM AND DRY, IV SITE TO THE RIGHT WRIST, INTACT, SALINE LOCKED. GENERALIZED WEAKNESS NOTED, PT AMBULATORY AT BASELINE. BED TO LOWEST POSITION, CALL LIGHT WITHIN REACH. WILL CONT TO MONITOR FOR CHANGES IN CONDITION.
[2020-04-06 21:07] VITALS: BP 133/77
--- NOTE | 2020-04-07 00:30 | NUR ---
PT IN BED RESTING COMFORTABLY WITH EYES CLOSED. NO C/O PAIN AT THIS TIME, NO ACUTE DISTRESS NOTED. RESP IS EVEN AND UNLABORED, ON BIPAP FIO2 65% SPO2 100%. NEED ATTENDED AND MET, FREQUENT VISUAL MONITORING RENDERED. BED TO LOWEST POSITION. CALL LIGHT WITHIN REACH. WILL CONT TO MONITOR FOR CHANGES IN CONDITION.
[2020-04-07 06:21] VITALS: BP 113/61
--- NOTE | 2020-04-07 06:36 | NUR ---
PT IN BED, RESTING COMFORTABLY WITH EYES CLOSED. NO ACUTE DISTRESS NOTED, RESP IS EVEN AND UNLABORED, NEEDS ATTENDED AND MET, FREQUENT VISUAL MONITORING RENDERED. PT ON HI FLOW WITH FI02 60% 30L, 02 SAT 99%. CALL LIGHT WITHIN REACH, BED TO LOWEST POSITION, WILL CONT TO MONITOR PT FOR CHANGES IN CONDITION AND ENDORSE TO NEXT SHUFT NURSE.
--- NOTE | 2020-04-07 07:00 | NUR ---
RECEIVED PT RESTING IN BED WITH NO C/O PAIN OR DISTRESS. A/O X4 WITH NO HAIRSTON OR DIZZINESS. TELE #10 CONNECTED TO PT AND HE DENIES ANY CP OR PRESSURE. PT FOUND ON HF 30 LPM AT 60%, NO SOB NOTED. PT ON 1200/DAY FLUID RESTRICTION. RIGHT WRIST IV CDI AND PATENT. PT COVID POSITIVE. SAFETY PRECAUTIONS IN PLACE, CALL LIGHT WITHIN REACH, WILL MONITOR.
[2020-04-07 07:59] LABS: BASOPHIL % 0.2 % (0-2); RED CELL DISTRIBUTION WIDTH 14.2 % (11.5-14.5)
[2020-04-07 08:03] LABS: PLATELET COUNT 419 x10^3mcL (130-400)
[2020-04-07 08:23] LABS: ALKALINE PHOSPHATASE 74 U/L (46-116); ALT/SGPT 94 U/L (16-63); AST/SGOT 66 U/L (15-37); BILIRUBIN TOTAL 0.6 mg/dL (0.20-1.00); C REACTIVE PROTEIN 4.6 mg/dL (<=0.9); CALCIUM 8.7 mg/dL (8.5-10.1); CHLORIDE SERUM 104 mmol/L (98-107); GFR1 > 60 mL/min; GLUCOSE SERUM 105 mg/dL (74-106); SODIUM SERUM 137 mmol/L (136-145); TOTAL PROTEIN, SERUM 6.9 g/dL (6.4-8.2)
[2020-04-07 08:36] LABS: ALBUMIN 2.4 g/dL (3.4-5.0)
[2020-04-07 09:16] VITALS: BP 106/63
--- NOTE | 2020-04-07 10:00 | NUR ---
PT STABLE WITH NO C/O ANY PAIN OR DISTRESS. ALL SAFETY PRECAUTIONS IN PLACE, CALL LIGHT WITHIN REACH, WILL CONTINUE TO MONITOR.
[2020-04-07 13:23] VITALS: BP 101/58
--- NOTE | 2020-04-07 16:16 | NUR ---
Initial Nutrition Assessment: 230A SELWYN HDZ 64M MR Dx: covid+, PNA, hypoxia PMHx: HTN, CVA PSHx: none Labs: (04/07) BUN 35H, AST 66H, ALT 94H, CRP 4.6H, Alb 2.4L (04/01) Ferritin 2202 H, Lactate Dehyd 703H Meds: Colace, Coreg, Decadron, Lipitor, Lovenox, Mucinex, Norvasc, Pepcid, Plavix, Ventolin, Zestril PRN Meds: Ativan, Hydralazine HCL, Tylenol, Zofran Diet: regular PO intake since admission: 15-40%, PO average of 24% Ht:182.9cm/6ft Wt: 83.91kg/185# BMI: 25.1 Bed scale: n/a IBW:80.9kg/178# %IBW: 103% UBW: n/a Age: 64 Food Allergies: unknown Skin condition: CDI Vern:19 Edema: none noted Last BM: 04/05 Per H&P (04/01): Pt is 64 w/ PMH of HTN and CVA, dx as COVID +2 days ago, who presents today w/ SOB and low O2 Saturday. The pt states that he measures his saturation at home and when it got too low he came to ED. When EMS arrived, they stated pt was 65% on room air. They places him on a nonrebreather had O2 increased to 80%. Pt is coughing and tachypneic states he is having trouble breathing. He will be admitted for further care. Dx at admission: PNA r/o covid, Hx of HTN(stable), DVT prophylaxis RD Note (04/07): Since pt was insolation, assessment was completed with pt's primary nurse. Per RN, pt is eating fine and has no GI distress. Pt is chewing and swallowing fine as well. Per RN, pt's appetite is fine but nutrition flowsheet shows that pt's average PO intake is 24%. With an average PO intake of 24%, pt is receiving 647 kcal and 29 g protein. This meets 26% of his estimated energy needs and 30% of protein needs. Problem with: N/V/D/C: per RN, none Problems with: Chewing: Swallowing: per RN, none Current appetite: per RN, fair Recent wt change: n/a %wt change: n/a Vitamin/Supplement use: n/a Special diet at home: n/a Physical activity: n/a Nutrition education given (specify specific nutrition education and handout given): n/a Food-drug interactions? Education given? n/a Estimated Nutritional Needs Based on ideal body weight (81kg) Energy: 2430 - 2835 kcal/day (30-35 kcal/kg for viral infection) Protein: 97 - 121 g/day (1.2-1.5 g/kg for viral infection) Fluid: 2430 - 2835 mL/day (1 mL/kcal) Nutrition Diagnosis: 1. Increased protein and energy needs r/t viral infection a/e/b pt is covid positive. 2. Inadequate energy and protein intake r/t poor PO intake a/e/b pt average PO intake of 24% since admission. Intervention 1. Recommend continue regular diet as tolerated. 2. Recommend Ensure Enlive BID for additional 700 kcal and 40 g protein. Monitor/Evaluate Goal: PO intake at least 75% of estimated needs Monitor: PO intake, Labs, GI function F/U in 2-3 days as high risk (04/09-)
--- NOTE | 2020-04-07 16:16 | NUR ---
1. Recommend continue regular diet as tolerated. 2. Recommend Ensure Enlive BID for additional 700 kcal and 40 g protein.
--- NOTE | 2020-04-07 17:10 | NUR ---
PT RESTING IN BED WITH NO C/O PAIN OR DISTRESS. A/O X4 WITH NO HAIRSTON OR DIZZINESS. TELE #10 CONNECTED TO PT AND HE DENIES ANY CP OR PRESSURE. PT FOUND ON HF 30 LPM AT 55%, NO SOB NOTED. PT ON 1200/DAY FLUID RESTRICTION. RIGHT WRIST IV CDI AND PATENT. PT COVID POSITIVE. SAFETY PRECAUTIONS IN PLACE, CALL LIGHT WITHIN REACH, WILL ENDORSE CARE OVER TO NIGHT NURSE.
[2020-04-07 18:33] VITALS: BP 112/66
--- NOTE | 2020-04-07 20:00 | NUR ---
PT RECEIVED IN BED, AWAKE, A/O X 3, ABLE TO FOLLOW COMMNADS, ABLE TO MAKE NEEDS KNOWN, SPEECH IS CLR, NO C/O HAIRSTON OR DIZZINESS. PT ON HI-FLOW 30L FI02 55% SP02 93%, OCCASIONAL DRY COUGH NOTED. PT ON TELE #10, NO C/O CP. ABD IS SOFT AND NON DISTENDED, ACTIVE BS PRESENT X4, NO C/O N/V/D. PT VOIDS FREELY, NO C/O PAIN OR DISCOMFORT. PT IS AMBULATORY, ABLE TO REPOSITION SELF IN BED AND TRANSFER FROM BED TO CHAIR INDEPENDENTLY. IV SITE RIGHT WRIST, CDI, SALINE LOCKED. BED TO LOWEST POSITION, CALL LIGHT WITHIN REACH, WILL CONT TO MONITOR FOR CHANGES IN CONDITION.
[2020-04-07 21:37] VITALS: BP 93/53
--- NOTE | 2020-04-08 00:14 | NUR ---
PT IN BED RESTING COMFORTABLY WITH EYES CLOSED, NO ACUTE DISTRESS NOTED. NO C/O PAIN AT THIS TIME. PT CONT ON HF 30L FI02 55%, SPO2 95%. BED TO LOWEST POSITION, CALL LIGHT WITHIN REACH. WILL CONT TO MONIOTR FOR CHANGES IN CONDTION.
[2020-04-08 05:32] VITALS: BP 106/65
--- NOTE | 2020-04-08 05:36 | NUR ---
PT IN BED AWAKE, RESTING CONFORTABLY. NO C/O PAIN, NO ACUTE DISTRESS NOTED. RESP IS EVEN AND UNLABORED, CONT ON HF 30L FI02 55% WITH SPO2 97%. FREQUENT VISUAL MONITORING RENDERED. NEEDS ATTENDED AND MET. CALL LIGHT WITHIN REACH WILL CONT TO MONITOR FOR CHANGES IN CONDITION.
--- NOTE | 2020-04-08 07:11 | NUR ---
RECEIVED PT REPORT FROM CARDIOVASCULAR INVASIVE SPECIALIST NURSE. WILL ASSUME PT CARE.
[2020-04-08 07:35] LABS: BASOPHIL % 0.1 % (0-2); PLATELET COUNT 399 x10^3mcL (130-400)
[2020-04-08 07:38] LABS: ALKALINE PHOSPHATASE 93 U/L (46-116); ALT/SGPT 96 U/L (16-63); AST/SGOT 61 U/L (15-37); BILIRUBIN TOTAL 0.73 mg/dL (0.20-1.00); C REACTIVE PROTEIN 3.4 mg/dL (<=0.9); CALCIUM 8.6 mg/dL (8.5-10.1); CARBON DIOXIDE 29.2 mmol/L (21-32); CHLORIDE SERUM 102 mmol/L (98-107); CREATININE SERUM 1.2 mg/dL (0.7-1.3); GFR1 > 60 mL/min; GLUCOSE SERUM 108 mg/dL (74-106); SODIUM SERUM 136 mmol/L (136-145); TOTAL PROTEIN, SERUM 6.8 g/dL (6.4-8.2)
[2020-04-08 07:40] LABS: ALBUMIN 2.4 g/dL (3.4-5.0)
[2020-04-08 08:53] VITALS: BP 105/67
--- NOTE | 2020-04-08 08:55 | NUR ---
PT SEEN AT BEDSIDE. PT AOX4, RESP E/U ON HIGH FLOW, O2: 30 LPM, FIO2: 55, SPO2: 94%. DENIES SOB AT THIS TIME, NO ACUTE DISTRESS NOTED. ON TELE 8 SHOWING NSR, HR: 63. IV SALINE LOCK TO LFA W/ NO ERYTHEMA/EDEMA. BED IN LOWEST POSITION AND CALL LIGHT WITHIN REACH. WILL CONTINUE TO MONITOR.
[2020-04-08 12:43] VITALS: BP 102/58
--- NOTE | 2020-04-08 12:43 | NUR ---
PT RESTING IN BED, AXO4, RESP E/U ON HIGH FLOW. RT AT BEDSIDE, TITRATED O2 TO 25 LPM AT THIS TIME. FIO2: 50, SPO2: 97%. PT DENIES SOB. WILL CONTINUE TO MONITOR.
--- NOTE | 2020-04-08 13:30 | NUR ---
DIETITIAN CO-SIGN The Nutrition Notes documented by the Water Quality Assistant have been reviewed. Reviewed/Co-Signed by: Joshua Lawson Documentation Done by: Fani Boyle
[2020-04-08 17:37] VITALS: BP 112/68
--- NOTE | 2020-04-08 17:56 | NUR ---
PT RESTING IN BED, AXO4, RESP E/U ON HIGH FLOW AT 25 LPM, FIO2: 50, SPO2: 96%. DENIES SOB AT THIS TIME, NO ACUTE DISTRESS NOTED. IV TO R WRIST PATENT/INTACT, WNL. BED IN LOWEST POSITION AND CALL LIGHT WITHIN REACH. WILL CONTINUE TO MONITOR.
--- NOTE | 2020-04-08 20:00 | NUR ---
PATIENT RECEIVED AWAKE, ALERT, ORIENTED X4 IN BED. RESPIRATION EVEN AND UNLABORED, ON HI FLOW AT 25 LPM, ON DROPLET PRECAUTION. SALINE LOCK TO R WRIST PATENT AND INTACT. DENIES GI DISCOMFORT, LBM 04/08. VOIDING FREELY WITHOUT DIFFICULTY, USES URINAL/BSC. GENERALIZED WEAKNESS. ON TELE #10. DENIES DISCOMFORT/PAIN AT THIS TIME. PLACED CALL LIGHT WITHIN REACH. WILL CONTINUE TO MONITOR.
[2020-04-08 20:15] VITALS: BP 112/73
[2020-04-09 05:20] VITALS: BP 107/65
--- NOTE | 2020-04-09 06:09 | NUR ---
PATIENT RESTING IN BED. RESPIRATION EVEN AND UNLABORED, ON HI FLOW AT 25 LPM, ON DROPLET PRECAUTION. IV SITE PATENT AND INTACT. DENIES DISCOMFORT/PAIN. ASSISTED WITH NEEDS. SAFETY OBSERVED. PLACED BED IN THE LOWEST POSITION. PLACED CALL LIGHT WITHIN REACH AT ALL TIMES.
--- NOTE | 2020-04-09 07:05 | NUR ---
RECEIVED PT REPORT FROM MANAGER AGRICULTURAL NURSE. WILL ASSUME PT CARE.
[2020-04-09 07:45] LABS: C REACTIVE PROTEIN 5.6 mg/dL (<=0.9); CALCIUM 8.6 mg/dL (8.5-10.1); CARBON DIOXIDE 30.3 mmol/L (21-32); CHLORIDE SERUM 105 mmol/L (98-107); CREATININE SERUM 0.8 mg/dL (0.7-1.3); GFR1 > 60 mL/min; GLUCOSE SERUM 149 mg/dL (74-106); POTASSIUM SERUM 3.5 mmol/L (3.5-5.1); SODIUM SERUM 141 mmol/L (136-145)
--- NOTE | 2020-04-09 08:55 | NUR ---
PT SEEN AT BEDSIDE RESTING COMFORTABLY, AOX4, RESO E/U ON HIGH FLOW AT 25 LPM, FIO2: 40, SPO2: 96%. DENIES SOB AT THIS TIME, NO ACUTE DISTRESS NOTED. ON TELE 10 SHOWING NSR, HR: 67. IV SALINE LOCK TO R WRIST W/ NO ERYTHEMA/EDEMA. BED IN LOWEST POSITION AND CALL LIGHT WITHIN REACH. WILL CONTINUE TO MONITOR.
[2020-04-09 08:58] VITALS: BP 116/78
[2020-04-09 09:22] LABS: RED CELL DISTRIBUTION WIDTH 14.3 % (11.5-14.5)
[2020-04-09 09:28] LABS: BASOPHIL % 0.1 % (0-2)
[2020-04-09 09:54] LABS: PLATELET COUNT 437 x10^3mcL (130-400)
[2020-04-09 12:26] VITALS: BP 109/65
[2020-04-09 16:06] VITALS: BP 103/66
--- NOTE | 2020-04-09 18:08 | NUR ---
PT IN BED AHVING DINNER, AOX4, RESP E/U ON HIGH FLOW AT 18 LPM, FIO2: 40. SPO2: 97%. DENIES SOB AT THIS TIME, NO ACUTE DISTRESS NOTED. IV TO R WRIST PATENT/INTACT, WNL. BED IN LOWEST POSITION AND CALL LIGHT WITHIN REACH. WILL ENDORSE TO ONCOMING NURSE.
--- NOTE | 2020-04-09 19:05 | NUR ---
RECEIVED PATIENT FROM PREVIOUS SHIFT NURSE. PATIENT IN NO ACUTE DISTRESS. AWAKE, ALERT AND ORIENTED X4. PATIENT DENIES ANY PAIN AT THIS TIME. TELE #10 SR. HR 60. PATIENT DENIES ANY CHEST PAIN OR CHEST PRESSURE. DENIES ANY HAIRSTON OR DIZZINESS AT THIS TIME. HI FLOW IN PLACE AT 18 LPM, FIO2 40%. DENIES ANY SOB AT THIS TIME. PATIENT ENCOURAGED TO LAY PRONE WHEN HE IS READY TO GO TO SLEEP. PATIENT VERBALIZES UNDERSTANDING. COMMODE AT BEDSIDE AND HAS TWO URINALS. RW IV WNL. BED IN LOWEST POSITION. CALL LIGHT WITHIN REACH. SIDE RAILS UP X2.
[2020-04-09 20:35] VITALS: BP 121/76
--- NOTE | 2020-04-09 21:45 | NUR ---
PATIENT HAD A 8SEC RUN OF [facility]. DR WHITE NOTIFIED. PATIENT ASYMPTOMATIC. DENIES NAY CHEST PAIN/CHEST PRESSURE. IS NOT LIGHTHEADED OR DIZZY. WILL CONTINUE TO MONITOR. NO FURTHER ORDERS AT THIS TIME.
[2020-04-09 22:23] VITALS: BP 108/52
--- NOTE | 2020-04-10 04:51 | NUR ---
PT TITRATED DOWN TO 10L VIA OXYMIZER AT 20:45 LAST NIGHT (04/09/20). PT TOLERATED WELL, WITHOUT INCIDENT. WILL CONT TO MONITOR, AND TITRATE TOLERATED. RN MADE AWARE.
--- NOTE | 2020-04-10 05:23 | NUR ---
PT TITRATED DOWN TO 8L VIA OXYMIZER WITHOUT INCIDENT, WILL CONT. TO MONITOR. CONTINUE TO TITRATE TOLERATED.
[2020-04-10 05:58] VITALS: BP 114/61
--- NOTE | 2020-04-10 06:54 | NUR ---
PATIENT IN NO ACUTE DISTRESS. NO MORE EVENTS OF VTACH. PATIENT SLEEPING COMFORTABLY. PATIENT TITRTATED DOWN BY RESP TP 8L OXYMIZER. [id number]%. EVEN AND UNLABORED BREATHING NOTED. NO C/O SOB. TOLERATED MEDCIATIONS. BED IN LOWEST POSITION. CALL LIGHT WITHIN REACH. ISOLATION PRECAUTIONS IN PLACE. SIDE RAILS UP X2.
--- NOTE | 2020-04-10 07:05 | NUR ---
RECEIVED PT REPORT FROM JANITORIAL ACCOUNT MANAGER NURSE. WILL ASSUME PT CARE.
[2020-04-10 08:24] LABS: CALCIUM 8.8 mg/dL (8.5-10.1); CARBON DIOXIDE 26.2 mmol/L (21-32); CHLORIDE SERUM 100 mmol/L (98-107); GFR1 > 60 mL/min; GLUCOSE SERUM 100 mg/dL (74-106); POTASSIUM SERUM 4.4 mmol/L (3.5-5.1); SODIUM SERUM 135 mmol/L (136-145)
--- NOTE | 2020-04-10 08:45 | NUR ---
PT SEEN AT BEDSIDE, RESTING COMFORTABLY, AOX4, RESP E/U ON 6L OXYMIZER. DENIES SOB AT THIS TIME, SPO2: 97%, NO ACUTE DISTRESS NOTED. ON TELE 10 SHOWING NSR, HR: 67. IV SALINE LOCK W/ NO ERYTHEMA/ EDEMA. BED IN LOWEST POSITION AND CALL LIGHT WITHIN REACH. WILL CONTINUE TO MONITOR.
[2020-04-10 08:56] VITALS: BP 104/67
[2020-04-10 09:16] LABS: BASOPHIL % 0 % (0-2); PLATELET COUNT 396 x10^3mcL (130-400); RED CELL DISTRIBUTION WIDTH 13.9 % (11.5-14.5)
[2020-04-10 12:49] VITALS: BP 107/59
[2020-04-10 17:46] VITALS: BP 109/67
--- NOTE | 2020-04-10 17:55 | NUR ---
PT IN BED HAVING DINNER, AOX3, RESP E/U ON 5L OXYMIZER, SPO2: 97%. DENIES SOB AT THIS TIME, NO ACUTE DISTRESS NOTED. IV TO R WRIST PATENT/INTACT, WNL. BED IN LOWEST POSITION AND CALL LIGHT WITHIN REACH. WILL CONTINUE TO MONITOR.
--- NOTE | 2020-04-10 19:00 | NUR ---
CARE ASSUMED FROM OUTGOING RN. PT RESTING COMFORTABLY IN BED. NO ACUTE DISTRESS NOTED. EVEN AND UNLABORED RESPIRATIONS ON 5L OXYMIZER, SATTING 95%, NO C/O SOB. ON TELE #10 READING SR 61. IVL INTACT. NO C/O PAIN AT THIS TIME. CONTACT AND DROPLET ISOLATION IN PLACE. BED IN LOWEST POSITION. SIDE RAILS UPX2. CALL LIGHT WITHIN REACH. WILL CONTINUE TO MONITOR.
[2020-04-10 21:16] VITALS: BP 111/73
--- NOTE | 2020-04-10 21:21 | NUR ---
RT AT BEDSIDE, TITRATED TO 3L OXYMIZER, PT TOLERATING WELL. WILL CONTINUE TO MONITOR.
--- NOTE | 2020-04-10 23:02 | NUR ---
DISREGARD POC GLUCOSE: 327, WRONG PT SCANNED. JOB LITHOGRAPHER MADE AWARE
--- NOTE | 2020-04-11 00:15 | NUR ---
PT RESTING IN SIDE-LYING POSITION WITH EYES CLOSED. NO ACUTE DISTRESS NOTED. EVEN AND UNLABORED RESPIRATIONS ON 3L OXYMIZER, SATTING 98%, ON TELE READING SB [address] WILL CONTINUE TO MONITOR.
[2020-04-11 06:33] VITALS: BP 123/77
--- NOTE | 2020-04-11 06:50 | NUR ---
PT RESTED COMFORTABLE IN INTERVALS THROUGHOUT THE SHIFT. ALL NEEDS TENDED TO AND MET. EVEN AND UNLABORED RESPIRATIONS ON 3L OXYMIZER, SATTING 97%. NO C/O SOB. ON TELE READING SR. NO C/O PAIN OR SOB. BED IN LOWEST POSITION. SIDE RAILS UPX2. CALL LIGHT WITHIN REACH. WILL ENDORSE TO ONCOMING SHIFT.
--- NOTE | 2020-04-11 07:30 | NUR ---
RECEIVED PT IN BED A/A/OX4 DENIES HAIRSTON. RESP EVEN AND UNLABORED WITH DIMINISHED BS TO BILAT BASES ON O2 AT 3L MIN VIA OXYMIZER SATING MID 90S. DENIES ANY CP/PRESSURE AT THIS TIME. NSR ON TELE WITH OCC SB. NO EDEMA NOTED WITH IV SL TO RW. ABD SOFT, NONTENDER WITH ACTIVE BS X4. DENIES ANY N/V AT THIS TIME. VOIDING FREELY CALL LIGHT IN REACH NEEDS ATTENDED TO.
[2020-04-11 07:32] LABS: C REACTIVE PROTEIN 0.9 mg/dL (<=0.9); CALCIUM 8.6 mg/dL (8.5-10.1); CARBON DIOXIDE 31.3 mmol/L (21-32); CHLORIDE SERUM 101 mmol/L (98-107); CREATININE SERUM 0.9 mg/dL (0.7-1.3); GFR1 > 60 mL/min; GLUCOSE SERUM 103 mg/dL (74-106); SODIUM SERUM 137 mmol/L (136-145)
[2020-04-11 07:54] LABS: BASOPHIL % 0 % (0-2); PLATELET COUNT 340 x10^3mcL (130-400); RED CELL DISTRIBUTION WIDTH 13.9 % (11.5-14.5)
[2020-04-11 08:36] VITALS: BP 94/72
[2020-04-11 12:15] VITALS: BP 108/60
--- NOTE | 2020-04-11 12:16 | NUR ---
DR. LYONS AT BEDSIDE EVALUATING PT MADE AWARE OF CONDITION AND POSSIBLE D/C HOME PLAN FOR TODAY WITH ORDER FOR HOME O2. MD REQUESTED FOR O2 TO BE TRITRATED DOWN SINCE PT O2 SAT 97%. O2 DROPPED TO 1L/MIN VIA NC. O2 SAT 94%.
--- NOTE | 2020-04-11 15:35 | NUR ---
Initial Nutrition Assessment - AILIN BILLINGSLEY Dx: COVID-19, PNA, Schizophrenia PMHx: SCHIZOPHRENIA, HTN, INSOMINA PSHx: UNKNOWN Labs: (04/11) NA 148H, BUN 27H, BG 186H, CA 8.2L Meds: DEXMETHASOME, REMDESIVIR, PLASMA Diet: REGULAR DIET PO intake since admission: NONE UNDER FLOW CHART Ht: 170.18CM/5'6 Wt:99.337KG/ 218# BMI: 34.3 Bed scale: YES IBW: 130# %IBW: 168% UBW: N/A ADJ BW: 152#/69KG Age: 65 Food Allergies: NKFA Skin condition: ERYTHEMA/ECCHY TO BUTTOCK, OPTIMFOAM ON COCCYX SDI, DRY SCABS TO BLE FEET Vern: 16 Edema: BUE/BLE EDEMA NOTED Last BM: 04/09 Per H&P 65 YO F WITH HX OF SCHIZOPHRENIA, HTN COMES FROM PSYCH FACILITY FOR DEHYDRATION, GENERAL WEAKNESS WITH COVID (+). PATIENT IS NONCOMPLIANT AND REFUSING TO WEAR MASK. RD Note INITIAL 04/11 PATIENT HAS PSYCH PROBLEMS, MOANS AND GROANS PER RN KEN. IN ISOLATION ROOM. NOTED WITH POOR APPETITE/ SLOW FEEDER PER RN JENNY. PATIENT WOULD BENFIT FROM ENSURE BID TOLERATED. ONLY CONSUMING SMALL BITES OF APPLEASAUCE PER RN THIS MORNING. WILL CONTINUE TO MONITOR po Problem with: FRENHC CATH IN PLACE DENIES N/V/D/C: Problems with: Chewing: Swallowing: NONE PER RN, JUST DESATS/ SLOW FEEDER Current appetite: POOR APPETITE PER Recent wt change: N/A %wt change: N/A Vitamin/Supplement use: N/A Special diet at home: N/A Physical activity: N/A Nutrition education given (specify specific nutrition education and handout given): N/A Food-drug interactions? Education given? N/A Estimated Nutritional Needs Based on ADJ BW(69KG) body weight Energy: 1727- 2070 kcal/day 25-30 (kcal/kg) Protein: 69- 83g/day 1.0-1.2 (g/kg) Fluid: 1500 mL/day (1 mL/kcal) EDEMA NOTED 1.5L REC Nutrition Diagnosis: INADEQUATE ORAL INTAKE R/T INFECTION AEB COVID (+), POOR PO INTAKE/ APPETITE, <50% OF ESTIMATED NEEDS. Intervention 1. CONTINUE REGULAR LIBERLAIZED DIET TO ENCOURAGE PO INTAKE. 2. CONSIDER 1 CAN ENSURE ENLIVE BID TO PROVIDE 700KCALS, 40GM PRO TO CURRENT INTAKE. Monitor/Evaluate Goal: PO intake at least 75% of estimated needs Monitor: PO intake, Labs, GI function F/U in days as risk HR FU 04/13-
--- NOTE | 2020-04-11 15:49 | NUR ---
1. Continue regular diet as tolerated. 2. Recommend Ensure Enlive BID for additional 700 kcal and 40 g protein.
[2020-04-11 16:27] VITALS: BP 162/72
--- NOTE | 2020-04-11 16:40 | NUR ---
PT/SON WAS CALLED AND PROVIDED WITH CVD D/C INSTRUCTIONS. INCLUDING REMAINING ISOLATED AT HOME FOR THE DAYS ATTENDING HAS INDICATED. SON PROVIDED WITH EDUCATION ON ISOLATION PREPARENESS FOR THE HOME IF POSSIBLE PT SHOULD HAVE OWN BATHROOM IF NOT IS SHOULD BE CLEANED AFTER PT USES IT. PT MUST WEAR A MASK WELL FAMILY ANY TIME PT LEAVES HIS ROOM. IF POSSIBLE PT SHOULD BE GIVEN FOOD IN DISPOSIBLE PLATES AND UTENSILS THAT CAN BE DISPOSED OF AFTER USE. CHILDREN IN THE HOME MUST BE EDUCATED TO FOLLOW ISOLATION UNTIL PT IS ABLE TO LEAVE ISOLATION ROOM. PT/SON VERBALIZED UNDERSTANDING OF INSTRUCTIONS.
--- NOTE | 2020-04-11 18:45 | NUR ---
PT RESTING AT THIS TIME. DENIES ANY DISCOMFORT. HAS BEEN MAINTAINED ON 1L/MIN VIA NC SATING MID 90S. DENIES ANY SOB. WITH INCREASE ACTIVITY, AMBULATING TO BR. CALL LIGHT IN REACH NEEDS ATTENDED TO.
--- NOTE | 2020-04-11 20:00 | NUR ---
PT A/A/O X4. DENIES DIZZINESS AND HEADACHE. BREATH SOUNDS DIMINISHIED JAYLENE BASES. BREATHING EVEN AND UNLABORED ON 1L NC, SPO2 97%. DENIES CHEST PAIN AND PRESSURE. BOWEL SOUNDS ACTIVE. NO C/O N/V AND ABD PAIN. IV SALINE LOCK INTACT ON THE RIGHT WRIST. MADE PT COMFORTABLE. PLACED CALL LIGHT WITH IN REACH. WILL CONTINUE TO MONITOR.
[2020-04-11 20:41] VITALS: BP 100/59
[2020-04-12 05:11] VITALS: BP 108/53
--- NOTE | 2020-04-12 06:55 | NUR ---
PT QUIET AND RESTING. NO SIGNIFICANT CHANGES NOTED. MADE PT COMFORTABLE. WILL ENDORSE TO THE AM NURSE ACCORDINGLY.
--- NOTE | 2020-04-12 07:20 | NUR ---
RECEIVED PT IN BED A/A/OX4 DENIES HAIRSTON. RESP EVEN AND UNLABORED WITH DIMINISHED BS BILAT. ON O2 AT 1L/MIN VIA NC WITH RT PROTOCOL. VERBALIZED IMPROVEMENT WITH SOB AND ACTIVITY TOLERANCE. DENIES ANY CP/PRESSURE AT THIS TIME. NSR ON TELE. NO EDEMA NOTED WITH IV SL TO RW. ABD SOFT, NONTENDER WITH ACTIVE BS X4. VOIDING FREELY. MILD GEN WEAKNESS, AMBULATORY WITH IMPROVEMENT WITH ACTIVITY TOLERANCE. VOIDING FREELY. +CVD, DROPLET PRECAUTIONS MAINTAINED. CALL LIGHT IN REACH NEEDS ATTENDED TO.
[2020-04-12 07:31] LABS: BASOPHIL % 0.3 % (0-2); PLATELET COUNT 319 x10^3mcL (130-400); RED CELL DISTRIBUTION WIDTH 13.9 % (11.5-14.5)
[2020-04-12 07:47] LABS: C REACTIVE PROTEIN 0.6 mg/dL (<=0.9); CALCIUM 8.4 mg/dL (8.5-10.1); CARBON DIOXIDE 33.9 mmol/L (21-32); CHLORIDE SERUM 101 mmol/L (98-107); GFR1 > 60 mL/min; GLUCOSE SERUM 102 mg/dL (74-106); POTASSIUM SERUM 3.9 mmol/L (3.5-5.1); SODIUM SERUM 137 mmol/L (136-145)
[2020-04-12 08:30] VITALS: BP 105/61
--- NOTE | 2020-04-12 11:19 | NUR ---
PT'S SON ABDOUL CALLED RETURN. MADE AWARE THAT THE PORTABLE O2 AND CONCENTRATOR WAS DELIVERED LAST NIGHT. MADE AWARE THAT NEW ATTENDING TODAY AND AWAITING D/C ORDERS. THERE IS A D/C HOME PLAN FOR TODAY BUT MD NEEDS TO MAKE ROUNDS AND PLACE ORDER. SPOKE WITH PT WELL. PT ANXIOUS TO LEAVE AFTER SPEAKING WITH PC INSTALLATION ENGINEER AND BEING TOLD HE WOULD GO HOME. MADE AWARE ATTENDING IS TO MAKE ROUND AND ENTER D/C ORDERS. SON MADE AWARE HE WILL BE CALLED AND ONCE ORDERS ARE IN AND HE WILL NEED TO BRING PORTABLE TANK WITH HIM.
[2020-04-12 12:50] VITALS: BP 110/65
[2020-04-12] MEDS ORDERED: NOR5 PO ×2 (12:54→14:06)
[2020-04-12 12:58] VITALS: BP 105/61
--- NOTE | 2020-04-12 14:12 | NUR ---
PT/SON PROVIDED WITH D/C HOME INSTRUCTIONS. GIVEN MEDICATION PRESCRIPTION EDUCATION MADE AWARE OF RX WILL BE SENT TO PT'S PHARMACY. MADE AWARE OF F/U APPT WITH PCP. REVIEWED HOME CARE INSTRUCTIONS FOR +CVD PT. MADE AWARE TO ALWAYS WEAR A MASK WHILE OUTSIDE THE ROOM AND FAMILY SHOULD WEAR A MASK WELL. FOR ATLEAST 10MORE DAYS PER MD INSTRUCTIONS. PT OFFERED MASK AND FAMILY REFUSED STATING THEY HAVE SOME AT HOME AND THAT THEY ARE NOT NEEDED. PT/SON VERBALIZED UNDERSTANDING OF INSTRUCTIONS. TELE AND IV HAD BEEN DISCONTINUED ABOUT ONE HR AGO. IV CATHETER WAS INTACT. PT LEFT FACILITY WITH HOME PORTABLE TANK AT 1L/MIN. SON VERBALIZED UNDERSTANDING OF SETTIGN UP CONCENTRATOR AT HOME. PT LEFT FREE OF ANY APPARENT DISTRESS. .
== END 2020-04-12 14:13 | disposition home or self-care (01) | DRG 137 ==
LOC: ED 07:08 → IC 08:45 → DU 08:45 → IC 10:29 → DU 10:42
PROVIDERS: Emergency Medicine; Internal Medicine; Student in an Organized Health Care Education/Training Program; ADMIT Family Medicine; ATTEND Family Medicine
PROC: XW13325 Transfusion of Convalescent Plasma (Nonautologous) into Peripheral Vein, Percutaneous Approach, New Technology Group 5 (ICD-10-PCS; principal; 2020-04-02)
PROC: 5A09357 Assistance with Respiratory Ventilation, Less than 24 Consecutive Hours, Continuous Positive Airway Pressure (ICD-10-PCS; 2020-04-02)
PROC: XW033E5 Introduction of Remdesivir Anti-infective into Peripheral Vein, Percutaneous Approach, New Technology Group 5 (ICD-10-PCS; 2020-04-02)
PROC: 5A09357 Assistance with Respiratory Ventilation, Less than 24 Consecutive Hours, Continuous Positive Airway Pressure (ICD-10-PCS; 2020-04-03)
PROC: XW033E5 Introduction of Remdesivir Anti-infective into Peripheral Vein, Percutaneous Approach, New Technology Group 5 (ICD-10-PCS; 2020-04-03)
PROC: 5A09357 Assistance with Respiratory Ventilation, Less than 24 Consecutive Hours, Continuous Positive Airway Pressure (ICD-10-PCS; 2020-04-04)
DX: U07.1 COVID-19 (principal); J96.01 Acute respiratory failure with hypoxia; E78.00 Pure hypercholesterolemia, unspecified; I10 Essential (primary) hypertension; Z86.73 Personal history of transient ischemic attack (TIA), and cerebral infarction without residual deficits; J12.89 Other viral pneumonia; Z79.899 Other long term (current) drug therapy; F41.9 Anxiety disorder, unspecified; R73.9 Hyperglycemia, unspecified
CPT/HCPCS: 36600; 82962; 83880; 85378; 87804; 94150; G0378; J0456; J0696; J1100; J1644; J1650; J2060; J3535; J7050; J7060; Q0092; U0003-CS